=== PATIENT | male | born 1990 | race Caucasian/White ===

== ENCOUNTER 2019-03-03 10:58 | Emergency (ER) | payer OTHER ==
[2019-03-03 11:31] VITALS: TEMP 98; BMI 24.2
[2019-03-03] MEDS ORDERED: KETOROLAC TROMETHAMINE 15 MG/ML VIAL IVPUSH ONE (11:38)
[2019-03-03] MEDS ORDERED: SODIUM CHLORIDE 0.9% 1000 ML INFUS.BAG IV ONE (11:38)
[2019-03-03] MEDS ORDERED: DEXAMETHASONE SOD PHOSPHATE 10 MG/1 ML VIAL IVPUSH ONE (11:39)
[2019-03-03] MEDS ORDERED: DEXAMETHASONE SOD PHOSPHATE 10 MG/1 ML VIAL ONE (11:44)
[2019-03-03] MEDS ORDERED: KETOROLAC TROMETHAMINE 15 MG/ML VIAL ONE (11:44)
[2019-03-03 12:18] LABS: BASO % 0.8 % (0-2.0); EOS % 1.7 % (0-4.5); HEMATOCRIT 46.3 % (35.4-49); HEMOGLOBIN 16.1 GM/dL (11.7-16.9); MCH 31.1 pg (25.7-33.7); MCHC 34.9 g/dl (32.0-35.9); MEAN CELL VOLUME 89.1 fl (80-96); MEAN PLT VOLUME 8.2 fl (7.5-11.1); MONO % 8.3 % (3.8-10.2); NEUT % 62.2 % (42.8-82.8); PLATELET COUNT 184 K/MM3 (134-434); RBC 5.19 M/mm3 (4.00-5.60); RDW 13.2 % (11.9-15.9); WHITE BLOOD COUNT 5.6 K/mm3 (4.0-10.0)
--- NOTE | 2019-03-03 12:43 | PDOC ---
Documentation entered by Cynthia Brink SCRIBE, acting as scribe for Radha Alamo DO. Rahda Alamo DO: This documentation has been prepared by the [place] molina Adrianna, SCRIBE, under my direction and personally reviewed by me in its entirety. I confirm that the documentation accurately reflects all work, treatment, procedures, and medical decision making performed by me. History of Present Illness - General Chief Complaint: Allergic Reaction Stated Complaint: SOB Time Seen by Provider: 03/03/19 11:32 - History of Present Illness Initial Comments: The patient is a 28 year old male, with no significant PMH, who presents to the ED for evaluation of throat swelling for a few hours. Patient notes that upon waking up this morning, his tongue and throat were significantly swollen. He reports that he feels his uvula his hanging far down. Patient notes he cannot swallow or take deep breaths through his mouth. He has been unable to eat or drink at this time. Patient endorses slight headache while in the ED. He notes that it does not feel like an allergic reaction, but notes he had a similar episode 10 years ago and was placed on an antibiotic at that time. Denies fever, chills, chest pain, SOB, diarrhea, constipation, dysuria, hematuria, itching, rash, hives, sick contacts. Allergies: NKA, NKDA Surgical History: None reported Social History: EtOH use (drank last night). Occasional tobacco use. Denies illicit drug use. Past History - Past Medical History Allergies/Adverse Reactions: Allergies Allergy/AdvReac Type Severity Reaction Status Date / Time No Known Allergies Allergy Verified 03/03/19 11:31 Home Medications: Ambulatory Orders Amoxicillin - [Amoxicillin 500mg Capsule -] 500 mg PO BID #20 capsule 03/03/19 Methylprednisolone [Medrol Dose Mirza] 4 mg PO ASDIR #21 tablet 03/03/19 COPD: No - Psycho Social/Smoking Cessation Hx Smoking History: Never smoked Hx Alcohol Use: Yes Drug/Substance Use Hx: No Review of Systems - Review of Systems Comments:: GENERAL/CONSTITUTIONAL: No fever or chills. No weakness. HEAD, EYES, EARS, NOSE AND THROAT: +Tongue swelling. +Throat swelling. +Uvula hanging down sensation. No change in vision. No ear pain or discharge. GASTROINTESTINAL: No nausea, vomiting, diarrhea or constipation. GENITOURINARY: No dysuria, frequency, or change in urination. CARDIOVASCULAR: No chest pain or shortness of breath. RESPIRATORY: No cough, wheezing, or hemoptysis. MUSCULOSKELETAL: No joint or muscle swelling or pain. No neck or back pain. SKIN: No rash NEUROLOGIC: +Slight headache. No vertigo, loss of consciousness, or change in strength/sensation. ENDOCRINE: No increased thirst. No abnormal weight change. HEMATOLOGIC/LYMPHATIC: No anemia, easy bleeding, or history of blood clots. ALLERGIC/IMMUNOLOGIC: No hives or skin allergy. *Physical Exam - Vital Signs Last Vital Signs Temp Pulse Resp BP Pulse Ox 98.0 F 95 H 16 141/93 98 03/03/19 11:03/03/19 11:29 03/03/19 11:03/03/19 11:03/03/19 11:29 - Physical Exam Comments: Constitutional: Awake, alert, oriented. No acute distress. Talking in full sentences. Head: Normocephalic. Atraumatic Eyes: PERRL. EOMI. Conjunctivae are not pale. ENT: +Uvula is edematous and long. Tonsils are not inflamed, without exudates. Swallowing his own secrections. Mucous membranes are moist and intact. Neck: Supple. Full ROM. No lymphadenopathy. Cardiovascular: Regular rate. Regular rhythm. S1, S2 regular. Distal pulses are 2+ and symmetric. Pulmonary/Chest: No evidence of respiratory distress. Clear to auscultation bilaterally No wheezing, rales or rhonchi. No stridor. Abdominal: Soft and non-distended. There is no tenderness. No rebound, guarding or rigidity. No organomegaly. No palpable masses. Good bowel sounds. Back: No CVA tenderness. Musculoskeletal: No edema. No cyanosis. No clubbing. Full range of motion in all extremities. Nocalf tenderness. Radial/pedal pulses are intact and 2+ bilaterally Skin: Skin is warm and dry. No petechiae. No purpura. Neurological: Alert and oriented to person, place, and time. Cranial nerves II -XII are grossly intact. Normal speech. Strength is grossly symmetric. No sensory deficits. Psychiatric: Good eye contact. Normal interaction, affect and behavior. Heart Score/ECG Review - ECG Intrepretation Comment:: 03/03/19 12:54 sinus at 74, nl axis, nl interval, t wave inversions III which are nonspecific, no acute st/t wave findings ED Treatment Course - LABORATORY CBC & Chemistry Diagram: 03/03/19 12:01 03/03/19 12:01 - ADDITIONAL ORDERS Additional order review: 03/03/19 12:01 RBC 5.19 MCV 89.1 MCHC 34.9 RDW 13.2 MPV 8.2 Neutrophils % 62.2 Lymphocytes % 27.0 Monocytes % 8.3 Eosinophils % 1.7 Basophils % 0.8 - RADIOLOGY Radiology Studies Ordered: Category Date Time Status CHEST PA & LAT [RAD] Stat Radiology 03/03/19 11:41 Completed NECK SOFT TISSUE [RAD] Stat Radiology 03/03/19 11:41 Completed Radiograph Interpretation: EXAM#: TYPE/EXAM: RESULT: [id number] RAD/CHEST PA LAT Chest: Soft tissue swelling. 2 views of the chest reveal clear lungs, normal mediastinum and sharp angles. There is a scoliosis. An acute process is not seen. Correlation recommended. Reported By: Charles Martínez MD 03/03/19 11:56 EXAM#: TYPE/EXAM: RESULT: [id number] RAD/NECK SOFT TISSUE Neck soft tissues: Swelling 2 views of the neck soft tissues reveal straightening with intact cervical spine, intact prevertebral soft tissues and intact epiglottis. The airway is patent and midline. There may be some neck swelling. There may be some minimal apical pleural thickening. This is not seen on the chest film. Correlation recommended. If symptoms persist, further imaging with CT may be of help. Reported By: Charles Martínez MD 03/03/19 11:57 - Medications Given in the ED: ED Medications Discontinued Medications Generic Name Dose Route Start Last Admin Trade Name Freq PRN Reason Stop Dose Admin Dexamethasone Sodium Phosphate 10 mg 03/03/19 11:39 03/03/19 12:04 Decadron Injection - IVPUSH 03/03/19 11:40 10 mg ONCE ONE Administration Ketorolac Tromethamine 15 mg 03/03/19 11:38 03/03/19 12:03 Toradol Injection - IVPUSH 03/03/19 11:39 15 mg ONCE ONE Administration Sodium Chloride 1,000 ml 03/03/19 11:38 03/03/19 12:03 Normal Saline - IV 03/03/19 11:39 1,000 ml ONCE ONE Administration Medical Decision Making - Medical Decision Making Medical Decision Making: I, Dr. Radha Alamo, DO, attest that this document has been prepared under my direction and personally reviewed by me in its entirety. I further attest, that it accurately reflects all work, treatment, procedures and medical decision -making performed by me. a/p: 28yo male with throat swelling this AM -pt speaking in clear sentences -pt tolerating secretions -pt feels swelling to posterior pharynx -no rhinorrhea, sore throat -pt states similar presentation 10yrs ago and tx with abx -pt with enlarged uvula on exam -tonsils normal -no exudates -erythema of uvula -will send labs, strep, will give steroids/toradol, ivf hydration -will monitor and reassess 12:47 strep neg no elevated wbc pt still feels swollen uvula still enlarged and swollen no airway involvment no stridor, speaking in full sentences, tolerating secretions case discussed with Dr. Weston - recommends amoxicillin tx and medrol dose pack, follow up tomorrow with him in the office. [phone] 2:52p re-eval: lungs cta, no stridor mild uvula swelling tolerated po intake in the ED speaking in full sentences, tolerating secretions Discharge - Discharge Information Problems reviewed: Yes Clinical Impression/Diagnosis: Uvulitis Condition: Stable Disposition: HOME - Admission No - Additional Discharge Information Prescriptions: Amoxicillin - [Amoxicillin 500mg Capsule -] 500 mg PO BID #20 capsule Methylprednisolone [Medrol Dose Mirza] 4 mg PO ASDIR #21 tablet - Follow up/Referral Referrals: Silviano Weston MD [Staff Physician] - - Patient Discharge Instructions Patient Printed Discharge Instructions: DI for Uvulitis Additional Instructions: Please call Dr. Weston to arrange follow up for tomorrow. Please start the steroids tomorrow as you received the first dose in the AM. Please take all antibiotics as prescribed. You did receive the first dose in the ED. Please follow up with your PMD. Please return to the ED with any further concerns or complaints. - Post Discharge Activity
[2019-03-03] MEDS ORDERED: AMOXICILLIN 500 MG CAPSULE (FP) PO ONE (12:49)
[2019-03-03 12:51] LABS: ALBUMIN 4.4 g/dl (3.4-5.0); BILIRUBIN,TOTAL 0.8 mg/dL (0.2-1); BLOOD UREA NITROGEN 11.8 mg/dL (7-18); CALCIUM 8.8 mg/dL (8.5-10.1); CREATININE 0.8 mg/dL (0.55-1.3); POTASSIUM 3.8 mmol/L (3.5-5.1); TOT PROT 8.1 g/dl (6.4-8.2)
[2019-03-03] MEDS ORDERED: AMOXICILLIN 500 MG CAPSULE (FP) ONE (12:51)
--- NOTE | 2019-03-03 15:03 | EKG ---
Test Reason : Blood Pressure : / mmHG Vent. Rate : 074 BPM Atrial Rate : 074 BPM P-R Int : 128 ms QRS Dur : 094 ms QT Int : 368 ms P-R-T Axes : 067 065 010 degrees QTc Int : 408 ms NORMAL SINUS RHYTHM NORMAL ECG NO PREVIOUS ECGS AVAILABLE Confirmed by AJAY CUEVA, ELOISA ([id number]) on 03/03/2019 3:03:33 PM Referred By: Confirmed By:ELOISA MOSS MD
[2019-03-03 15:54] VITALS: BP 131/88; PULSE 78
== END 2019-03-03 15:53 | disposition home or self-care (01) ==
LOC: JER 10:58
PROC: 3E0333Z Introduction of Anti-inflammatory into Peripheral Vein, Percutaneous Approach (ICD-10-PCS; principal; 2019-03-03)
PROC: 3E0333Z Introduction of Anti-inflammatory into Peripheral Vein, Percutaneous Approach (ICD-10-PCS; 2019-03-03)
DX: K12.2 Cellulitis and abscess of mouth (principal); K14.0 Glossitis
CPT/HCPCS: 36415; 70360-TC-FY; 71046-TC-FY; 80053; 85025; 87070; 87880; 93005; 93010; 99282-25; J1100; J7030

== ENCOUNTER 2021-07-20 11:47 | Emergency (ER) | payer OTHER ==
[2021-07-20 11:59] VITALS: BP 137/88; PULSE 107; TEMP 98; BMI 26.1
== END 2021-07-20 13:07 | disposition left against medical advice (07) ==
LOC: JER 11:47
DX: J02.9 Acute pharyngitis, unspecified (principal)
CPT/HCPCS: 99281-25